=== PATIENT | female | born 1985 | race Caucasian/White ===

== ENCOUNTER 2025-05-19 20:58 | Emergency (ER) | payer OTHER ==
[~2025-05-19] VITALS: Ht 152.4 cm; Wt 41.7 kg
[2025-05-19] MEDS: HYDROCODONE/APAP 5-325MG TABLET PO ONE (22:13)
[2025-05-19 22:15] VITALS: BP 96/72; O2SAT 97
== END 2025-05-19 22:12 | disposition left against medical advice (07) ==
LOC: ER 21:12
DX: R09.02 Hypoxemia (principal); R06.00 Dyspnea, unspecified; R07.89 Other chest pain; R51.9 Headache, unspecified; R60.0 Localized edema; I27.20 Pulmonary hypertension, unspecified; Z88.0 Allergy status to penicillin
CPT/HCPCS: A4606; A4663